=== PATIENT | male | born 1980 | race Caucasian/White ===

== ENCOUNTER 2020-01-11 00:59 | Emergency (ER) | payer SELFPAY ==
[~2020-01-11] VITALS: Ht 180.3 cm; Wt 91.0 kg
[2020-01-11 01:43] LABS: BASOPHILS % 0.4 % (0.0-2.0); EOSINOPHILS % 1.1 % (0.0-5.0); HEMATOCRIT. 44.9 % (42.0-52.0); HEMOGLOBIN. 15.9 g/dL (14.0-18.0); LYMPHOCYTES % 27.7 % (20.0-50.0); MEAN CORPUSCULAR HEMOGLOBIN 32.2 pg (28.0-32.0); MEAN CORPUSCULAR VOLUME 90.6 fL (80.0-94.0); MONOCYTES % 7.8 % (2.0-8.0); PLATELET 126 x1000/uL (130-400); RED BLOOD CELL COUNT 4.96 mill/uL (4.7-6.1); RED CELL DISTRIBUTION WIDTH 13.1 % (11.6-14.6)
[2020-01-11 01:46] LABS: CHLORIDE 103 mEq/L (98-107)
[2020-01-11] MEDS ORDERED: NITROGLYCERIN 0.4MG TABLET SL SL PRN (02:15)
[2020-01-11] MEDS ORDERED: ASPIRIN 325MG TABLET PO SCH (02:15)
[2020-01-11 02:53] LABS: *AMPHETAMINES SCREEN URINE PRESUMTIVE POSITIVE (NEGATIVE); *BARBITURATES SCREEN URINE NEGATIVE (NEGATIVE); *BENZODIAZEPINES SCREEN URINE NEGATIVE (NEGATIVE)
[2020-01-11 02:54] LABS: *COCAINE SCREEN URINE NEGATIVE (NEGATIVE); CANNABINOID URINE SCREEN NEGATIVE (NEGATIVE); METHADONE URINE SCREEN NEGATIVE (NEGATIVE); OPIATES URINE SCREEN NEGATIVE (NEGATIVE); PHENCYCLIDINE URINE SCREEN NEGATIVE (NEGATIVE)
[2020-01-11 03:12] LABS: CLARITY URINE CLEAR (CLEAR); COLOR URINE YELLOW (YELLOW); KETONES URINE NEGATIVE (NEGATIVE); LEUKOCYTE ESTERASE URINE NEGATIVE (NEGATIVE); NITRITE URINE NEGATIVE (NEGATIVE); OCCULT BLOOD URINE NEGATIVE (NEGATIVE); PROTEIN URINE NEGATIVE (NEGATIVE); SPECIFIC GRAVITY URINE 1.005 (1.005-1.030); UROBILINOGEN URINE 0.2 E.U./dL (0.2-1.0)
[2020-01-11] MEDS ORDERED: AMLODIPINE 5MG TABLET PO ONE (04:00)
[2020-01-11 04:30] VITALS: BP 150/113
== END 2020-01-11 04:51 | disposition home or self-care (01) ==
LOC: EDBD 01:58 → ER 01:58
DX: R07.89 Other chest pain (principal)
CPT/HCPCS: 36415; 71045; 80053; 80305; 81003; 85025; 93005; 99285